=== PATIENT | female | born 1960 | race Caucasian/White ===

== ENCOUNTER 2024-07-22 12:23 | Emergency (ER) | payer BC, MEDICARE, SELFPAY ==
[2024-07-22] VITALS (19 sets, daily range): BP systolic 109–146; BP diastolic 56–83; PULSE 53–65; RESP 12–19; TEMP 36.8; O2SAT 93–100; BMI 27.6
--- NOTE | 2024-07-22 12:26 | ED_ITS ---
Discharge Plan Disposition Patient Disposition: Xfer Short-Term Hosp Condition: Serious Referrals Follow up/Referrals: Mauricio Blancas [Primary Care Provider] - See instructions Clinical Impressions Clinical Impression: Cerebrovascular accident Stand Alone Forms Stand Alone Forms: Transfer Record - ED Print Language Print Language: Thai Discharge ED Provider: Nick Tran General Adult HPI General Chief complaint: Neuro Symptoms/Deficit Stated complaint: synco Time Seen by Provider: 07/22/24 12:26 History of Present Illness HPI narrative: Patient is a 63-year-old female with a history of CVA, hypertension, hyperlipidemia, MS?. She presents today due to concerns for stroke symptoms. Reportedly, was feeling her normal self at 11:30 AM this morning. Then at about 11:38 AM, experienced an episode of confusion and weakness. 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 She does not remember the exact events surrounding it. She was, per staff, walking and ended up falling against the wall. Did not hit her head. Was assisted to the ground by staff. She reportedly was not responding during this time and exhibiting confused speech. On EMS arrival, was found to have a [place] stroke scale of 0, but was having significant word finding difficulties and dysarthria. She reports to me that this is how her previous stroke felt. She denies the use of any blood thinners. Related Data Allergies Allergy/AdvReac Type Severity Reaction Status Date / Time No Known Allergies Allergy Verified 07/22/24 13:15 [facility] Disclaimer: The information contained in this section may have been updated after the patient was seen, as this information can be updated by other users. Social History Smoking Status: Never smoker alcohol intake: never current occupational status: employed Travel in the last 8 weeks?: None ROS Obtained: Yes All systems reviewed & no additional complaints except as documented Physical Exam General General appearance: alert and in no apparent distress Head Head exam: atraumatic and normocephalic Eye Eye exam: Present PERRL and EOMI ENT ENT exam: Present normal oropharynx Neck Neck exam: Present full ROM and trachea midline Chest Chest inspection: Present symmetric chest wall rise Respiratory Respiratory exam: Present normal lung sounds bilaterally; Absent stridor Cardiovascular Cardiovascular exam: Present regular rate and normal rhythm Abdominal Exam Abdominal exam: Present soft; Absent distention or tenderness Extremities Exam Extremities exam: Present full ROM Neurological Exam Neurological exam: Present alert, CN II-XII intact and other (dysarthria and wordfinding difficulty, partial hemianopia); Absent oriented X3 (oriented to self and place, not time) Psychiatric Psychiatric exam: Present normal mood Skin Skin exam: Present warm and dry Medical Decision Making Medical Records Screening: Per USPSTF and CDC recommendations, given the prevalence of disease in our region, it is our hospital?s policy to screen for HIV and viral Hepatitis for all patients aged 18 and over and those with ongoing risk factors. Silas Inquiry Pt receiving controlled substance: No Vital Signs: 07/22/24 12:25 07/22/24 12:30 07/22/24 12:30 Temperature 98.3 F 98.3 F 98.3 F Temperature Source Oral Tympanic Pulse Rate 59 L 58 L Respiratory Rate 16 16 14 Blood Pressure 119/69 118/62 Blood Pressure Source Automatic Cuff Blood Pressure Position Sitting 02 Sat by Pulse Oximetry 97 100 Oxygen Delivery Method Room Air Room Air 07/22/24 13:12 07/22/24 13:27 07/22/24 13:40 Temperature Temperature Source Pulse Rate 61 58 L 57 L Respiratory Rate 14 13 Blood Pressure 121/65 123/63 128/69 Blood Pressure Source Automatic Cuff Blood Pressure Position Sitting 02 Sat by Pulse Oximetry 97 97 98 Oxygen Delivery Method Room Air Room Air Room Air 07/22/24 13:46 07/22/24 13:50 07/22/24 13:56 Temperature Temperature Source Pulse Rate 57 L 54 L 54 L Respiratory Rate 18 14 12 Blood Pressure 109/80 L 123/68 118/56 L Blood Pressure Source Blood Pressure Position 02 Sat by Pulse Oximetry 98 97 97 Oxygen Delivery Method Room Air Room Air Room Air 07/22/24 14:00 07/22/24 14:05 07/22/24 14:10 Temperature Temperature Source Pulse Rate 56 L 64 55 L Respiratory Rate 16 18 12 Blood Pressure 136/71 144/76 H 134/71 Blood Pressure Source Blood Pressure Position 02 Sat by Pulse Oximetry 98 93 L 99 Oxygen Delivery Method Room Air Room Air Room Air 07/22/24 14:21 07/22/24 14:26 07/22/24 14:30 Temperature Temperature Source Pulse Rate 57 L 53 L 58 L Respiratory Rate 13 16 14 Blood Pressure 146/65 H 139/65 133/68 Blood Pressure Source Blood Pressure Position 02 Sat by Pulse Oximetry 96 96 95 Oxygen Delivery Method Room Air Room Air Room Air 07/22/24 14:36 07/22/24 14:40 07/22/24 14:45 Temperature Temperature Source Pulse Rate 56 L 56 L 54 L Respiratory Rate 15 17 15 Blood Pressure 135/66 128/67 131/71 Blood Pressure Source Blood Pressure Position 02 Sat by Pulse Oximetry 94 L 99 97 Oxygen Delivery Method Room Air Room Air Room Air 07/22/24 14:51 07/22/24 15:18 Temperature 98.3 F Temperature Source Pulse Rate 65 55 L Respiratory Rate 19 16 Blood Pressure 141/83 H 131/71 Blood Pressure Source Automatic Cuff Blood Pressure Position Sitting 02 Sat by Pulse Oximetry 99 Oxygen Delivery Method Room Air Room Air Lab Data Lab Results 07/22/24 12:30: WBC 9.9, RBC 4.22, Hgb 13.5, Hct 39.7, MCV 94.1, MCH 32.0 H, MCHC 34.0, RDW 12.6, Plt Count 233, MPV 10.2, Neut % (Auto) 64.7, Lymph % (Auto) 26.4, [place] % (Auto) 7.0, Eos % (Auto) 1.2, Baso % (Auto) 0.4, Neut # (Auto) 6.4, Lymph # (Auto) 2.6, [place] # (Auto) 0.7, Eos # (Auto) 0.1, Baso # (Auto) 0.0, PT 10.6, INR 0.95, APTT 20.0 L, Sodium 138, Potassium 3.8, Chloride 108 H, Carbon Dioxide 28, Anion Gap 5.8, BUN 19 H, Creatinine 0.90, Estimated Creat Clear 57, Estimated GFR 63, Est GFR ( Amer) 77, Glucose 128 H, Calcium 9.0, Total Bilirubin 1.0, AST 45 H, ALT 31, Alkaline Phosphatase 79, Troponin I 0.02, Total Protein 6.3, Albumin 3.9, Globulin 2.4, Albumin/Globulin Ratio 1.6, Triglycerides 82, Cholesterol 110 L, LDL Cholesterol Direct < 30.00 L, VLDL Cholesterol 16, HDL Cholesterol 50, Cholesterol/HDL Ratio 2.2, Plasma/Serum Alcohol < 10 07/22/24 12:30 07/22/24 12:30 Orders (Tests/Meds): ED MEDICATIONS Generic Name Dose Route Start Last Admin Trade Name Glenda PRN Reason Stop Dose Admin Sodium Chloride 10 ml 07/22/24 12:44 Sodium Chloride 0.9% 10ml Flush Syringe IV 08/21/24 12:43 NEEDED PRN Maintain IV Site Discontinued Medications Generic Name Dose Route Start Last Admin Trade Name Glenda PRN Reason Stop Dose Admin Clopidogrel Bisulfate 300 mg 07/22/24 14:52 07/22/24 15:14 Clopidogrel 300mg Tablet PO 07/22/24 14:53 300 mg ONCE ONE Administration Iopamidol 80 ml 07/22/24 12:47 07/22/24 12:50 Iopamidol-370 (76%);100ml Bottle IV 07/22/24 12:48 80 ml ONCE ONE Administration Sodium Chloride 50 ml 07/22/24 12:47 07/22/24 12:50 0.9 % Sodium Chloride 50 Ml Vial IV 07/22/24 12:48 50 ml ONCE ONE Administration Sodium Chloride 10 ml 07/22/24 12:47 07/22/24 12:50 Sodium Chloride 0.9% 10ml Syr (Rad Only) IV 07/22/24 12:48 10 ml ONCE ONE Administration ORDERS Category Date Time Status CT angio head Stat Cat Scan 07/22/24 12:[address] angio neck Stat Cat Scan 07/22/24 12:[address] head/brain wo con Stat Cat Scan 07/22/24 12:44 Completed Activated Partial Thrombo Time Stat Lab 07/22/24 12:30 Completed Complete Blood Count Auto Diff Stat Lab 07/22/24 12:30 Completed Comprehensive Metabolic Panel Stat Lab 07/22/24 12:30 Completed Drug Screen,Urine Stat Lab 07/22/24 12:44 Ordered Ethyl Alcohol Stat Lab 07/22/24 12:30 Completed Lipid Panel Stat Lab 07/22/24 12:30 Completed Prothrombin Time INR Stat Lab 07/22/24 12:30 Completed Troponin I Q3H Lab 07/22/24 18:45 Ordered Troponin I Stat Lab 07/22/24 12:30 Completed Urinalysis and Microscopic Stat Lab 07/22/24 12:44 Ordered Medical Decision Narrative: In summary, this 63-year-old female presents to the emergency department today with stroke-like symptoms. On initial evaluation patient is afebrile, hemodynamically stable and in no acute distress. On exam is warm well-perfused. Pupils are unreactive cranial nerves II through 12 intact. She does have what appears to be partial hemianopsia right-sided vision changes. She also has dysarthria and word finding difficulties. NIH stroke scale four. Have made a stroke alert with emergent CT head and CTA head and neck.. Differential diagnosis includes but is not limited to CVA, ICH, hypertension, hyperlipidemia, TIA. Based on these concerns, I ordered CT head, CTA head and neck, CBC, CMP, PTT, troponins, lipid panel, EKG. ECG personally interpreted demonstrates normal sinus rhythm with no acute ischemic ST changes and intervals within normal limits.. Patient received Plavix for treatment. Labs personally reviewed demonstrate no evidence of anemia no leukocytosis, no significant electrolyte derangement. Glucose within normal limits.. CT imaging personally interpreted demonstrate calcification versus meningioma on the right occipital lobe. No acute intracranial abnormality otherwise. This confirmed by the radiologist final read.. On my reassessment, patient still has some word finding difficulties, but fluidity of speech has improved. Coworkers at bedside. Coworker reports that she is the same as when she came in this morning and her normal self. I have spoken with over the phone at length given patient still is alert and oriented only x 2, she is forgotten the month twice. reports that based on my description and coworkers confirmation that he feels that patient is at her baseline. I spoke about administering thrombolytics and the risks and benefits associated with it and the time sensitivity nature. Ultimately after weighing risks and benefits and shared decision making, and patient confirmed that they would not like thrombolytics administered at this time. I had an interactive discussion with neurology stroke at [facility]. They are concerned for M1 stenosis versus occlusion on the left. On my reassessment, patient's speech is even more improved and she confirms that she is back to her baseline. Patient refusing transfer to the [facility]. Requests transfer to [facility]. I have consulted with stroke neurology at [facility] Dr. Lopez graciously agrees to accept the patient to their service for transfer for further workup and definitive management. Patient was transferred in hemodynamically stable condition. Recommends Plavix load which I have administered. Of note, social determinants of health include poor health literacy. Critical Care Critical Care Time Critical Care Time: Yes Attestation: On 07/22/24, the high probability of a clinically significant, sudden or life threatening deterioration of the following system(s) required my full and direct attention, intervention and personal management. The time I documented below is in addition to time spent performing reported procedures but includes the following listed in this critical care notation. Total Time Total Critical Care Time: 45
--- NOTE | 2024-07-22 12:28 | ECG_ITS ---
APPROVED REPORT Exam: Resting ECG HR:63 bpm ECG Measurements Heart Rate 63 AXES NE 178 P 62 QRSd 96 QRS 13 QT 410 T 59 QTc 417 Conclusion SINUS RHYTHM LOW QRS VOLTAGE IN PRECORDIAL LEADS [QRS DEFLECTION < 1.0 mV IN CHEST LEADS] NONSPECIFIC T-WAVE ABNORMALITY BORDERLINE ECG UNCONFIRMED REPORT Electronically signed by : Nick Tran, 07/22/2024 16:18:23
--- NOTE | 2024-07-22 12:41 | PC.NURSE ---
manual BP 112/72
--- NOTE | 2024-07-22 12:42 | PC.NURSE ---
Pt transported to CT
--- NOTE | 2024-07-22 12:44 | CT_ITS ---
FINAL REPORT CLINICAL HISTORY: possible stroke, syncope and confusion COMPARISON: None FINDINGS: CT NECK ANGIO, WITHOUT AND WITH CONTRAST TECHNIQUE: Thin section axial CT with contrast with multiplanar 3D MIP reconstruction. This study was performed with techniques to keep radiation doses as low as reasonably achievable, (ALARA). Individualized dose reduction techniques using automated exposure control or adjustment of mA and/or kV according to the patient''s size were employed. NASCET criteria and technique was utilized during interpretation. FINDINGS: Aortic arch: Arch shows no significant narrowing. Great vessel origins are widely patent. Right carotid: No significant stenosis is seen of the cervical common or internal carotid artery. Mild plaque at the carotid bifurcation. Left carotid: No significant stenosis is seen of the cervical common or internal carotid artery. Mild plaque at the carotid bifurcation. Vertebrals: Left vertebral artery is dominant. No significant stenosis is present. IMPRESSION: No significant stenosis of the cervical carotid arteries This study was performed using automated techniques to achieve radiation exposure as low as reasonably Reviewed, Interpreted and Dictated by Kameron Lee MD Transcribed by Sierra Mendez Authenticated and [facility]
--- NOTE | 2024-07-22 12:44 | CT_ITS ---
FINAL REPORT CLINICAL HISTORY: possible stroke, syncope , confusion COMPARISON: None FINDINGS: CTA HEAD TECHNIQUE: Thin section axial CT with contrast with 3D MIP reconstruction This study was performed with techniques to keep radiation doses as low as reasonably achievable, (ALARA). Individualized dose reduction techniques using automated exposure control or adjustment of mA and/or kV according to the patient''s size were employed. FINDINGS: No aneurysm is seen. Major intracranial vessels are patent without significant stenosis. . IMPRESSION: Unremarkable This study was performed using automated techniques to achieve radiation exposure as low as reasonably achievable Reviewed, Interpreted and Dictated by Kameron Lee MD Transcribed by Sierra Mendez Authenticated and [facility]
--- NOTE | 2024-07-22 12:44 | CT_ITS ---
FINAL REPORT TECHNIQUE: Noncontrast exam This study was performed with techniques to keep radiation doses as low as reasonably achievable, (ALARA). Individualized dose reduction techniques using automated exposure control or adjustment of mA and/or kV according to the patient''s size were employed. CLINICAL HISTORY: possible stroke, syncope and confusion COMPARISON: None FINDINGS: Moderate atrophy. There is a large chronic lacunar infarct in the left basal ganglia and external capsule. There is an extra-axial mass in the right posterior fossa along the tentorium measuring up to 18 mm with dense central calcification, probably representing a meningioma. No cortical edema is present. Bone windows show no skull fracture or obvious obstructive lesion. IMPRESSION: No acute intracranial abnormality. Old left-sided infarct. Presumed meningioma along the right tentorium. Reviewed, Interpreted and Dictated by Kameron Lee MD Transcribed by Sierra Mendez Authenticated and . [facility]
[2024-07-22] MEDS: IOPAMIDOL-370 (76%);100ML BOTTLE 80 ML IV (12:50)
[2024-07-22] MEDS: 0.9 % SODIUM CHLORIDE 50 ML VIAL IV (12:50)
[2024-07-22] MEDS: SODIUM CHLORIDE 0.9% 10ML SYR (RAD ONLY) 10 ML IV (12:50)
[2024-07-22 12:51] LABS: Basophils % 0.4 % (0.1-2.0); Eosinophils # 0.1 Kmm3 (0.0-0.4); Eosinophils % 1.2 % (0.1-12.0); Hematocrit 39.7 % (37.0-47.0); Hemoglobin 13.5 g/dL (12.2-16.2); Immature Granulocytes # 0.03 10^3uL; Immature Granulocytes % 0.3 %; Lymphocytes # 2.6 K/mm3 (0.7-4.5); Lymphocytes % 26.4 % (10-50); Mean Corpuscular Volume 94.1 fl (81-99); Mean Platelet Volume 10.2 fl (7.4-10.4); Monocytes # 0.7 K/mm3 (0.1-1.0); Neutrophils # 6.4 K/mm3 (1.8-7.8); Neutrophils % 64.7 % (37.0-80.0); Nucleated Red Blood Cells # 0 10^3/uL; Nucleated Red Blood Cells % 0 %; Platelet Count 233 K/mm3 (142-424); Red Blood Count 4.22 M/mm3 (4.20-5.40); Red Cell Distribution Width 12.6 % (11.5-17.5); Red Cell Distribution Width-SD 43.6 fL; White Blood Count 9.9 K/mm3 (4.8-10.8)
[2024-07-22 13:01] LABS: Albumin Level 3.9 g/dl (3.5-5.0); Chloride 108 mmol/L (98-107); Potassium 3.8 mmoL/L (3.5-5.1); Sodium 138 mmol/L (136-145)
--- NOTE | 2024-07-22 13:02 | PC.NURSE ---
Pt back from CT, coworker at bedside
[2024-07-22 13:04] LABS: Alanine Aminotransferase 31 U/L (12-78); Albumin/Globulin Ratio 1.6 (1.1-1.8); Alkaline Phosphatase 79 U/L (38-126); Anion Gap 5.8 mEq/L (5-15); Aspartate Amino Transferase 45 U/L (14-36); Blood Urea Nitrogen 19 mg/dl (7-17); Carbon Dioxide 28 mmol/L (22.0-30.0); Cholesterol 110 mg/dl (140-200); Creatinine Clearance Estimated 57 mL/min (50-200); Estimated Glomerular Filt Rate 63 ml/min (>60); GFR (African American) 77 ML/MIN (>60); Globulin 2.4 g/dL (1.3-3.2); Total Protein,Serum 6.3 g/dl (6.3-8.2); Triglycerides 82 mg/dl (30-150); VLDL Cholesterol 16 mg/dL (0-40)
[2024-07-22 13:05] LABS: Chol/HDL Ratio 2.2 (1-3.5); Glucose 128 mg/dl (74-100); HDL Cholesterol 50 mg/dl (40-60)
[2024-07-22 13:09] LABS: Ethyl Alcohol < 10 mg/dl (0-10)
[2024-07-22 13:13] LABS: INR 0.95 (0.9-1.1); Prothrombin Time 10.6 seconds (10.1-12.5)
[2024-07-22 13:16] LABS: Troponin I 0.02 ng/ml (0.00-0.034)
[2024-07-22 13:17] LABS: Direct LDL Cholesterol < 30.00 mg/dL (100-129)
--- NOTE | 2024-07-22 14:24 | PC.NURSE ---
Called [facility] per Dr Tran to speak with them about transferring this pt for an M1 occlusion. has us on hold while they are checking for the Stroke field support representative. came back online and Dr Tran is speaking with them now
--- NOTE | 2024-07-22 14:47 | PC.NURSE ---
Called [facility] to possibly transfer this pt to there facility for stroke with and M1 Occlusion. Pt refused and [facility] and asked about [facility]. Called [facility] and Dr Tran is speaking with them now.
--- NOTE | 2024-07-22 15:06 | PC.NURSE ---
[facility] accepted this pt and the paperwork and Disc has been put together for transfer
[2024-07-22] MEDS: CLOPIDOGREL 300MG TABLET 300 MG PO (15:14)
== END 2024-07-22 15:55 | disposition short-term general hospital (02) ==
PROVIDERS: Emergency Provider Emergency Medicine; PCP Family Medicine
DX: I63.9 Cerebral infarction, unspecified (principal); R29.704 NIHSS score 4; R55 Syncope and collapse; Z86.73 Personal history of transient ischemic attack (TIA), and cerebral infarction without residual deficits
CPT/HCPCS: 70450; 70496; 70498; 80053; 80061; 80320; 84484; 85025; 85610; 85730; 93005; 99291; Q9967